=== PATIENT | female | born 1945 | race Caucasian/White ===

== ENCOUNTER 2020-06-18 10:49 | Inpatient (IN) | payer MEDICARE, OTHER ==
[~2020-06-18] VITALS: Ht 157.5 cm; Wt 94.3 kg
[2020-06-18] VITALS (9 sets, daily range): BP systolic 98–134; BP diastolic 31–74
--- NOTE | 2020-06-18 11:00 | NUR ---
SUDDEN ONSET ABDOMINAL PAIN STARTED AT 0930. PATIENT A/OX4, BREATHING EVEN AND UNLABORED, NO SOB NOTED, NEEDS ATTENDED. CHANGED INTO GOWN.
--- NOTE | 2020-06-18 11:25 | NUR ---
PATIENT STATES SHE ONLY URINATES TWICE, MORNING AND EVENING. UNABLE TO GIVE URINE AT THIS TIME.
[2020-06-18 11:27] LABS: BASOPHILS % (AUTO) 0.3 % (0.0-2.0); HEMATOCRIT 34 % (33-45); HEMOGLOBIN 10.8 g/dL (11.5-14.8); LYMPHOCYTES # (AUTO) 1.1 /CMM (0.8-4.8); LYMPHOCYTES % (AUTO) 19.4 % (20.0-44.0); MEAN CORPUSCULAR HGB CONC 32 g/dl (31.0-36.0); MEAN CORPUSCULAR VOLUME 93 fL (82-100); MONOCYTES # (AUTO) 0.2 /CMM (0.1-1.30); MONOCYTES % (AUTO) 2.8 % (2.0-12.0); NEUTROPHILS # (AUTO) 4.5 /CMM (1.8-8.9); NEUTROPHILS % (AUTO) 76.5 % (43.0-81.0); PLATELET COUNT (AUTO) 246 /CMM (150-450); WHITE BLOOD COUNT (AUTO) 5.9 K/uL (4.3-11.0)
[2020-06-18] MEDS ORDERED: PANTOPRAZOLE 40 MG VIAL IV ONE (11:30)
[2020-06-18] MEDS ORDERED: ONDANSETRON HCL/PF 4 MG/2 ML VIAL IVP ONE (11:30)
[2020-06-18] MEDS ORDERED: IV NS 0.9% 500 ML BAG IV ONE (11:30)
[2020-06-18] MEDS ORDERED: MORPHINE SULFATE INJ 2 MG/ML DISP.SYRIN IV ONE (11:30)
[2020-06-18] MEDS ORDERED: PANTOPRAZOLE 40 MG VIAL ONE (11:32)
[2020-06-18] MEDS ORDERED: ONDANSETRON HCL/PF 4 MG/2 ML VIAL ONE (11:32)
[2020-06-18] MEDS ORDERED: MORPHINE SULFATE INJ 4 MG/ML DISP.SYRIN ONE (11:33)
[2020-06-18 11:35] LABS: CALCIUM, SERUM 8.8 mg/dL (8.5-10.1); CARBON DIOXIDE 34 mmol/L (21-32); CHLORIDE 99 mmol/L (98-107); CREATININE 4.5 mg/dL (0.6-1.3); GLUCOSE 189 mg/dL (74-106); POTASSIUM 3.7 mmol/L (3.5-5.1); SODIUM SERUM 138 mmol/L (136-145); UREA NITROGEN, BLOOD 20 mg/dL (7-18)
[2020-06-18 11:41] LABS: ALANINE AMINOTRANSFERASE 20 U/L (12-78); ALBUMIN 2.5 g/dL (3.4-5.0); ALKALINE PHOSPHATASE 75 U/L (46-116); ASPARTATE AMINOTRANSFERASE 17 U/L (15-37); BILIRUBIN,DIRECT 0.1 mg/dL (0.0-0.2); BILIRUBIN,TOTAL 0.3 mg/dL (0.2-1.0); LIPASE 119 U/L (73-393); TOTAL PROTEIN, SERUM 6.5 g/dL (6.4-8.2)
[2020-06-18] MEDS ORDERED: HYDROMORPHONE INJ 2 MG/ML DISP.SYRIN IV ONE (12:30)
[2020-06-18] MEDS ORDERED: PIPERACILLIN /TAZOBACTAM 3.375 G in IV D5W 50 ML IV ONE (12:30)
[2020-06-18] MEDS ORDERED: HYDROMORPHONE 1 MG/1 ML DISP.SYRIN ONE (12:54)
[2020-06-18] MEDS ORDERED: IV NS 0.9% 1,000 ML BAG IV ONE (13:00)
--- NOTE | 2020-06-18 13:05 | NUR ---
PATIENT RESTING, HAD HER EYES CLOSED, BUT MOANING. VITALS STABLE. IV FLUID AT A SLOW RATE.
[2020-06-18] MEDS ORDERED: AMIO200T5 PO (13:15)
[2020-06-18] MEDS ORDERED: ACYC800T PO (13:15)
[2020-06-18] MEDS ORDERED: ATOR10TA PO (13:15)
[2020-06-18] MEDS ORDERED: APIX5TAB PO (13:15)
[2020-06-18] MEDS ORDERED: GABA300C PO (13:15)
--- NOTE | 2020-06-18 13:21 | NUR ---
ASHWINI CHAUHAN [phone]
--- NOTE | 2020-06-18 13:43 | NUR ---
COVID SWAB SENT.
[2020-06-18] MEDS ORDERED: FLUD0.1T PO (14:05)
--- NOTE | 2020-06-18 14:15 | NUR ---
ICU 258
[2020-06-18] MEDS ORDERED: IV NS 0.9% 1,000 ML IV ONE (14:30)
[2020-06-18] MEDS ORDERED: ONDANSETRON HCL/PF 4 MG/2 ML VIAL IVP PRN (14:30)
[2020-06-18] MEDS ORDERED: ACETAMINOPHEN 650 MG/SUPP.RECT RC PRN (14:30)
--- NOTE | 2020-06-18 14:40 | NUR ---
ATTEMPTED TO GIVE REPORT. PATIENT IS NOT AVAILABLE AT THIS TIME.
--- NOTE | 2020-06-18 14:54 | NUR ---
REPORT GIVEN TO DEDRICK PERAZA FOR VIKTORIA.
[2020-06-18] MEDS ORDERED: HYDROMORPHONE 1 MG/1 ML DISP.SYRIN IV PRN (15:00)
--- NOTE | 2020-06-18 15:15 | NUR ---
PATIENT A/OX4, BREATHING EVEN AND UNLABORED, NO SOB NOTED, NEEDS ATTENDED, KEPT COMFORTABLE. PATIENT TRANSFERRED TO ROOM 258, ENDORSED TO DEDRICK PERAZA.
[2020-06-18] MEDS ORDERED: IV NS 0.9% 1,000 ML IV PRN (15:30)
--- NOTE | 2020-06-18 16:17 | NUR ---
PHARMACIST HELPER RECEIVED PATIENT FROM ER WITH DIAGNOSIS OF PERFORATED VISCUS, UNDER CARE OF PHYLICIA DRIER ATTENDANT, A/O X4, 2L NC, O2 SAT 100%, TELE MONITOR SINUS RHYTHM, NO MG CATHETER, R AC 20G INTACT DRY CLEAN FLUSHES WELL, L FA AV FISTULA BRUIT HEARD, PLAN OF CARE DISCUSSED WITH PATIENT, PHYLICIA DRIER ATTENDANT AT BED SIDE, BED IN LOWEST LOCKED POSITION, SAFETY MEASURES OBSERVED, CALL LIGHT WITHIN REACH, STARTED ON IV FLUID ORDERED, PRANAV TEACHER EDUCATION DIRECTOR AND MARIAN AT BED SIDE SEEN PATIENT, NPO FO POSSIBLE SURGERY WILL CONTINUE TO MONITOR.
[2020-06-18] MEDS: FLUDROCORTISONE 0.1 MG TABLET PO SCH (16:46)
--- NOTE | 2020-06-18 17:00 | NUR ---
WAGE AND HOUR INVESTIGATOR NOTE LACTIC ACID 3.0 PHYLICIA RN BOOM STICK WORKER AWARE,NO NEW ORDER GIVEN CONT IVF ORDERED
--- NOTE | 2020-06-18 17:08 | NUR ---
commercial horticulture instructor note per milli boykin wall cleaner need to transfer to [facility] ,charge nurse spoke with case consultant for arrangement
--- NOTE | 2020-06-18 17:15 | NUR ---
agricultural research director note abg done as ordered
[2020-06-18 17:26] LABS: ABG BASE EXCESS 7.8 mmol/L; ABG OXYGEN SATURATION 98.3 % (92.0-98.5); ABG PCO2 48.9 mmHg (35.0-45.0); ABG PH 7.448 (7.350-7.450); ABG PO2 141.1 mmHg (75.0-100.0); AaDO2 29.8 mmHg; COHb 1.2 % (0.5-1.5); MetHb 0.3 % (0.0-1.5); O2Hb 96.8 % (94.0-97.0); SITE, ABG Right Radial; VENT MODE, BG N/C 3 LPM
[2020-06-18] MEDS ORDERED: PIPERACILLIN /TAZOBACTAM 3.375 G in IV D5W 50 ML IV SCH (18:00)
--- NOTE | 2020-06-18 18:01 | NUR ---
INFORMATION TECHNOLOGY SECURITY ANALYST CALLED RADIOLOGY TO NOTIFY THEM THAT THE PATIENT HAS A STAT ECHOCARDIOGRAM ORDERED, REPLIED THEY WILL COME TO THE UNIT TO PERFORM IT RIGHT AWAY.
--- NOTE | 2020-06-18 18:40 | NUR ---
icu registered nurse note 2decho done as ordered
--- NOTE | 2020-06-18 19:07 | NUR ---
ADMISSION NURSE BLOOD SUGAR CHECKED AND IS 80, NOTIFIED DR WHATLEY, SHE ORDERED TO CHANGE NORMAL SALINE TO D5NS 70ML/HR.
--- NOTE | 2020-06-18 19:10 | NUR ---
EFFERVESCENT SALTS COMPOUNDER SPOKE TO INSURANCE PERSONNEL TO REVIEW THE TRANSFER.
--- NOTE | 2020-06-18 19:10 | NUR ---
OXYGEN PLANT OPERATOR SPOKE TO SCIENTIFIC DATABASE CURATOR ABOUT COMPLETING THE TRANSFER.
--- NOTE | 2020-06-18 19:16 | NUR ---
TECHNICAL INFORMATION SPECIALIST PATIENT IN BED, NO S/S OF DISTRESS, ON 2 L NC, O2 SAT 100%, TELE MONITOR ON SINUS RHYTHM, A/O X4, NO EDEMA NOTED, SACRAL/ BUTTOCKS REDNESS, RASH ON BACK, R AC 20G CLEAN DRY AND INTACT, FLUSHES WELL, FISTULA NOTED ON L FOREARM BRUIT HEARD, PACEMAKER NOTED IN RIGHT GROIN REGION, OUR CATHEAD OPERATOR JESSICA IS WORKING ON HER TRANSFER, BED IN LOWEST LOCKED POSITION, SAFETY MEASURES IN PLACE, CALL LIGHT WITHIN REACH.
[2020-06-18] MEDS: IV D5/ 0.9% NACL 1,000 ML IV SCH (19:46)
[2020-06-18] MEDS: PIPERACILLIN /TAZOBACTAM 2.25 G in IV D5W 50 ML IV SCH (21:00)
[2020-06-18] MEDS ORDERED: ATORVASTATIN 10 MG TABLET PO SCH (22:00)
[2020-06-19] VITALS (27 sets, daily range): BP systolic 94–141; BP diastolic 38–71
--- NOTE | 2020-06-19 02:00 | NUR ---
ASSUMED CARE FROM FLORY PERAZA,RECEIVED REPORT ,PATIENT REMAINS STABLE,AWAKE,ALERT,NOT IN ANY DISTRESS,DENIES ANY PAIN,ABDOMEN NON TENDER,NON DISTENDED, NO NAUSEA,NO VOMITING.WILL CONTINUE TO MONITOR FOR ANY ABDOMINAL SYMPTOMS.MAINTAIN NPO FOR NOW.
[2020-06-19] MEDS: PIPERACILLIN /TAZOBACTAM 2.25 G in IV D5W 50 ML IV SCH ×3 (04:54→21:01)
--- NOTE | 2020-06-19 05:00 | NUR ---
REMAINS STABLE,REMAINS PAIN FREE.
--- NOTE | 2020-06-19 07:00 | NUR ---
REMAINS STABLE.NO PAIN ALL NIGHT .PENDING TRANSFER TO [facility]
--- NOTE | 2020-06-19 07:15 | NUR ---
ICU NOTES RECEIVED PATIENT IN BED RESTING COMFORTABLY IN MODERATE HIGH BACK REST, A/O X4. NO S/S OF DISTRESS, ON OXYGEN 2L VIA NC TOLERATING WELL, ON EXTERNAL TELE MONITOR WITH CURRENT READING OF SINUS RHYTHM, SACRAL/ BUTTOCKS REDNESS, RASH ON BACK, IV FLUIDS ON RAC #20 WITH D5NS RUNNING @70ML/HR. FISTULA NOTED ON LEFT FOREARM BRUIT HEARD, SAFETY MEASURES IN PLACE, BED IN LOWEST LOCKED POSITION WITH SIDE RAILS UP X2, CALL LIGHT WITHIN EASY REACH. WILL CONTINUE TO MONITOR.
[2020-06-19] MEDS: PANTOPRAZOLE 40 MG VIAL IV SCH (08:12)
[2020-06-19] MEDS: FLUDROCORTISONE 0.1 MG TABLET PO SCH ×3 (08:18→16:33)
[2020-06-19] MEDS ORDERED: Z GUARD REMEDY 4 OZ OINT TP PRN (08:30)
--- NOTE | 2020-06-19 08:30 | NUR ---
WOUND CARE CONSULT: PT PRESENTS WITH DRY LESIONS TO LEFT SIDE OF BACK, PRESENT ON ADMISSION. PT STATES HAS RESOLVING SHINGLES. NO DRAINAGE NOTED. RECOMMENDATIONS MADE FOR SKIN PROTECTION. PT IS ABLE TO ASSIST WITH REPOSITIONING IN BED AND IS CONTINENT AT THIS TIME. WILL SEE PRN. VILLAVICENCIO IN AGREEMENT WITH PLAN OF CARE. Addendum: 06/19/20 at 0831 by JACINTA VELASQUEZ WNDNU Amended: Links added.
[2020-06-19] MEDS ORDERED: GABAPENTIN 300 MG CAPSULE PO SCH (09:00)
[2020-06-19] MEDS ORDERED: AMIODARONE HCL 200 MG TABLET PO SCH (09:00)
[2020-06-19 09:07] LABS: BASOPHILS % (AUTO) 0.3 % (0.0-2.0); EOSINOPHILS % (AUTO) 0.7 % (0.0-6.0); HEMATOCRIT 32 % (33-45); HEMOGLOBIN 10.3 g/dL (11.5-14.8); LYMPHOCYTES % (AUTO) 11.2 % (20.0-44.0); MEAN CORPUSCULAR HGB CONC 33 g/dl (31.0-36.0); MEAN CORPUSCULAR VOLUME 94 fL (82-100); MONOCYTES # (AUTO) 0.5 /CMM (0.1-1.30); MONOCYTES % (AUTO) 5.9 % (2.0-12.0); NEUTROPHILS # (AUTO) 7.1 /CMM (1.8-8.9); NEUTROPHILS % (AUTO) 81.9 % (43.0-81.0); PLATELET COUNT (AUTO) 183 /CMM (150-450); RED BLOOD CELL COUNT(AUTO) 3.36 MIL/uL (4.0-5.2); WHITE BLOOD COUNT (AUTO) 8.7 K/uL (4.3-11.0)
--- NOTE | 2020-06-19 09:10 | NUR ---
ICU NOTES DIALYSIS NURSE ON UNIT, WILL DIALYZE PATIENT. NO SIGNS OF DISTRESS, WILL CONTINUE TO MONITOR.
[2020-06-19 09:20] LABS: CALCIUM, SERUM 8.4 mg/dL (8.5-10.1); CARBON DIOXIDE 31 mmol/L (21-32); CHLORIDE 101 mmol/L (98-107); GLUCOSE 79 mg/dL (74-106); POTASSIUM 4.8 mmol/L (3.5-5.1); SODIUM SERUM 140 mmol/L (136-145); UREA NITROGEN, BLOOD 32 mg/dL (7-18)
[2020-06-19 09:27] LABS: ALANINE AMINOTRANSFERASE 25 U/L (12-78); ALBUMIN 2.2 g/dL (3.4-5.0); ALKALINE PHOSPHATASE 74 U/L (46-116); ASPARTATE AMINOTRANSFERASE 30 U/L (15-37); BILIRUBIN,TOTAL 0.4 mg/dL (0.2-1.0); MAGNESIUM 2.1 mg/dL (1.8-2.4); PHOSPHORUS 5.6 mg/dL (2.5-4.9); TOTAL PROTEIN, SERUM 6.2 g/dL (6.4-8.2)
[2020-06-19] MEDS: IV D5/ 0.9% NACL 1,000 ML IV SCH (10:27)
--- NOTE | 2020-06-19 12:20 | NUR ---
ICU NOTES S/P HD WITH 2L OUTPUT, NO SIGNS OF DISTRESS, WILL CONTINUE TO MONITOR.
--- NOTE | 2020-06-19 19:27 | NUR ---
ICU NOTES PATIENT IN BED RESTING COMFORTABLY IN MODERATE HIGH BACK REST, A/O X4. NO S/S OF DISTRESS NOTED THROUGHOUT THE SHIFT, ON OXYGEN 2L VIA NC TOLERATING WELL, ON EXTERNAL TELE MONITOR WITH CURRENT READING OF SINUS RHYTHM, SACRAL/ BUTTOCKS REDNESS, RASH ON BACK, IV FLUIDS ON RAC #20 WITH D5NS RUNNING @70ML/HR. FISTULA NOTED ON LEFT FOREARM BRUIT HEARD, S/P HD WITH 2L OUTPUT, SAFETY MEASURES MAINTAINED, BED IN LOWEST LOCKED POSITION WITH SIDE RAILS UP X2, CALL LIGHT WITHIN EASY REACH. ENDORSED TO ROOFER HELPER VINYL COATING NURSE FOR VIKTORIA.
--- NOTE | 2020-06-19 19:30 | NUR ---
PANELBEATER RCD PT W/DX PERFORATED VISCUS PT ON ISOLATION PRECAUTIONS. NSR ON MONITOR. O2 2L VIA NC. NO RESP DIST NOTED. A/O x4 W/EPISODES OF CONFUSION NOTED. PT DENIES PAIN AT THIS TIME C/O BEING HUNGRY HOWEVER PT REMAINS NPO AT THIS TIME. PT PENDING TRANSFER FOR HIGHER LEVEL OF CARE. D5NS @ 70 ML/HR VIA R AC.
[2020-06-20] VITALS (12 sets, daily range): BP systolic 103–141; BP diastolic 39–96
--- NOTE | 2020-06-20 | NUR ---
WEB SITE DESIGNER PT DECLINES TO BE REPOSITIONED AT THIS TIME. WOULD LIKE TO HAVE SOME TIME TO SLEEP.
[2020-06-20] MEDS: IV D5/ 0.9% NACL 1,000 ML IV SCH (00:30)
[2020-06-20] MEDS: PIPERACILLIN /TAZOBACTAM 2.25 G in IV D5W 50 ML IV SCH (04:00)
[2020-06-20 05:05] LABS: BASOPHILS % (AUTO) 0.5 % (0.0-2.0); EOSINOPHILS % (AUTO) 1.7 % (0.0-6.0); HEMATOCRIT 27 % (33-45); LYMPHOCYTES # (AUTO) 1.1 /CMM (0.8-4.8); LYMPHOCYTES % (AUTO) 14.7 % (20.0-44.0); MEAN CORPUSCULAR HGB CONC 33 g/dl (31.0-36.0); MEAN CORPUSCULAR VOLUME 93 fL (82-100); MONOCYTES # (AUTO) 0.5 /CMM (0.1-1.30); MONOCYTES % (AUTO) 7.5 % (2.0-12.0); NEUTROPHILS # (AUTO) 5.5 /CMM (1.8-8.9); NEUTROPHILS % (AUTO) 75.6 % (43.0-81.0); PLATELET COUNT (AUTO) 192 /CMM (150-450); RED BLOOD CELL COUNT(AUTO) 2.95 MIL/uL (4.0-5.2); WHITE BLOOD COUNT (AUTO) 7.3 K/uL (4.3-11.0)
--- NOTE | 2020-06-20 05:09 | NUR ---
CYCLE REPAIRER PT CONTINUES SLEEPING. DECLINES BATH AND WOULD LIKE TO KNOW WHEN SHE WILL BE ABLE TO EAT. CONTINUE TO MONITOR.
[2020-06-20 05:13] LABS: CALCIUM, SERUM 8.8 mg/dL (8.5-10.1); CARBON DIOXIDE 32 mmol/L (21-32); CHLORIDE 102 mmol/L (98-107); CREATININE 4.4 mg/dL (0.6-1.3); GLUCOSE 73 mg/dL (74-106); MAGNESIUM 2.2 mg/dL (1.8-2.4); POTASSIUM 4.5 mmol/L (3.5-5.1); SODIUM SERUM 140 mmol/L (136-145); UREA NITROGEN, BLOOD 29 mg/dL (7-18)
[2020-06-20] MEDS: FLUDROCORTISONE 0.1 MG TABLET PO SCH (09:00)
[2020-06-20] MEDS: PANTOPRAZOLE 40 MG VIAL IV SCH (09:55)
--- NOTE | 2020-06-20 11:03 | NUR ---
BOAT MOTOR MECHANIC CASE MANAGEMENT CALL FOR UPDATE FOR PATIENT TO BE TRANSFERED TO [facility], [address] STEM TEACHER WITH AMBULACE. WILL BE TRANSFERED TO [facility] . REPORT GIVEN TO CHARGE NURSE [phone]
[2020-06-23 12:17] LABS: HEPATITIS Be AB Negative (Negative)
== END 2020-06-20 12:15 | disposition short-term general hospital (02) | DRG 393 ==
LOC: ER 10:57 → ICU 14:23
PROVIDERS: ADMIT Nurse Practitioner Acute Care
PROC: 5A1D70Z Performance of Urinary Filtration, Intermittent, Less than 6 Hours Per Day (ICD-10-PCS; principal; 2020-06-19)
DX: K95.89 Other complications of other bariatric procedure (principal); K63.1 Perforation of intestine (nontraumatic); N18.6 End stage renal disease; I13.2 Hypertensive heart and chronic kidney disease with heart failure and with stage 5 chronic kidney disease, or end stage renal disease; E87.2 Acidosis; E66.2 Morbid (severe) obesity with alveolar hypoventilation; E11.22 Type 2 diabetes mellitus with diabetic chronic kidney disease; Z95.0 Presence of cardiac pacemaker; Z99.2 Dependence on renal dialysis; I48.91 Unspecified atrial fibrillation; Z86.19 Personal history of other infectious and parasitic diseases; E78.5 Hyperlipidemia, unspecified; I50.9 Heart failure, unspecified; B02.9 Zoster without complications; Z68.38 Body mass index [BMI] 38.0-38.9, adult; K80.20 Calculus of gallbladder without cholecystitis without obstruction; D35.00 Benign neoplasm of unspecified adrenal gland; K76.89 Other specified diseases of liver; N25.0 Renal osteodystrophy; D64.9 Anemia, unspecified; H54.8 Legal blindness, as defined in USA; Z79.4 Long term (current) use of insulin; Y84.8 Other medical procedures as the cause of abnormal reaction of the patient, or of later complication, without mention of misadventure at the time of the procedure; Y73.8 Miscellaneous gastroenterology and urology devices associated with adverse incidents, not elsewhere classified; Y92.009 Unspecified place in unspecified non-institutional (private) residence as the place of occurrence of the external cause
CPT/HCPCS: 36415; 36600; 71045-TC; 80048-TC; 80053-TC; 80076-TC; 82962-TC; 83605-TC; 83690-TC; 83735-TC; 84100-TC; 84484-TC; 85025-TC; 86706; 86707; 87040-TC; 87081-TC; 87350; 90935-TC; 93307-TC; C9113; C9803; G0378; J1170; J2270; J2405; J2543; J7030; J7040; J7042; J7060